=== PATIENT | female | born 1975 | race Caucasian/White ===

== ENCOUNTER → 2019-10-10 | Outpatient (CLI) | payer OTHER | LOC: MC.RAD 13:45 | DX: Z12.31 Encounter for screening mammogram for malignant neoplasm of breast (principal); R92.0 Mammographic microcalcification found on diagnostic imaging of breast ==

== ENCOUNTER → 2019-10-12 | Outpatient (CLI) | payer OTHER | LOC: MC.RAD 09:24 | DX: R92.0 Mammographic microcalcification found on diagnostic imaging of breast (principal) ==

== ENCOUNTER → 2019-10-17 | Outpatient (CLI) | payer OTHER | LOC: MC.RAD 07:00 | DX: Z12.31 Encounter for screening mammogram for malignant neoplasm of breast (principal); R92.0 Mammographic microcalcification found on diagnostic imaging of breast; Z98.890 Other specified postprocedural states ==

== ENCOUNTER → 2024-02-01 | Outpatient (CLI) | payer OTHER ==
[2024-02-01 23:07] LABS: EOSINOPHIL 1 % (0-4); LYMPHOCYTE 29 % (20.0-51.0); NEUTROPHILS 68 % (42.0-75.2)
[2024-02-01 23:11] LABS: PLATELET ESTIMATE DECREASED (NORMAL)
== END ==
LOC: COL.LAB 18:08
PROVIDERS: Family Medicine
DX: D69.6 Thrombocytopenia, unspecified (principal)